=== PATIENT | male | born 1990 | race African-American/Black ===

== ENCOUNTER 2019-05-08 04:56 | Emergency (ER) | payer OTHER ==
[2019-05-08 05:36] VITALS: BP 112/60; PULSE 77; TEMP 98.1; BMI 55.3
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
[2019-05-08] MEDS ORDERED: IBUPROFEN 600 MG TABLET (FP) PO ONE ×2 (06:33→06:36)
[2019-05-08] MEDS ORDERED: METHOCARBAMOL 500 MG TABLET PO ONE (06:33)
[2019-05-08] MEDS ORDERED: METHOCARBAMOL 500 MG TABLET ONE (06:37)
--- NOTE | 2019-05-09 09:39 | EKG ---
Test Reason : Blood Pressure : / mmHG Vent. Rate : 074 BPM Atrial Rate : 074 BPM P-R Int : 188 ms QRS Dur : 096 ms QT Int : 394 ms P-R-T Axes : 074 048 072 degrees QTc Int : 437 ms NORMAL SINUS RHYTHM EARLY REPOLARIZATION NORMAL ECG WHEN COMPARED WITH ECG OF 18-MAY-2015 19:40, NO SIGNIFICANT CHANGE WAS FOUND Confirmed by STEFF EMMANUEL MD ([id number]) on 05/09/2019 9:38:31 AM Referred By: Jarvis GONZALEZ Confirmed By:STEFF EMMANUEL MD
== END 2019-05-08 06:50 | disposition home or self-care (01) ==
LOC: JER 04:56
DX: S20.219A Contusion of unspecified front wall of thorax, initial encounter (principal); V53.6XXA Passenger in pick-up truck or van injured in collision with car, pick-up truck or van in traffic accident, initial encounter; Y92.414 Local residential or business street as the place of occurrence of the external cause; Y93.89 Activity, other specified; Y99.8 Other external cause status
CPT/HCPCS: 93005; 93010; 99282-25

== ENCOUNTER 2019-08-24 22:38 | Emergency (ER) | payer SELFPAY ==
[2019-08-24 22:49] VITALS: BMI 25.0
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
[2019-08-24] MEDS ORDERED: SODIUM CHLORIDE 1,000 ML IV STA (23:20)
[2019-08-24] MEDS ORDERED: IBUPROFEN 600 MG TABLET (FP) PO ONE ×2 (23:20→23:45)
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
[2019-08-25 00:20] LABS: BASO % 0.5 % (0-2.0); EOS % 2.6 % (0-4.5); HEMATOCRIT 40.4 % (35.4-49); HEMOGLOBIN 13.8 GM/dL (11.7-16.9); LYMPH % 40.5 % (8-40); MCHC 34.2 g/dl (32.0-35.9); MEAN CELL VOLUME 87.7 fl (80-96); MEAN PLT VOLUME 8.6 fl (7.5-11.1); MONO % 9.2 % (3.8-10.2); NEUT % 47.2 % (42.8-82.8); PLATELET COUNT 265 K/MM3 (134-434); RBC 4.61 M/mm3 (4.00-5.60); WHITE BLOOD COUNT 7.6 K/mm3 (4.0-10.0)
[2019-08-25 00:23] VITALS: PULSE 73
[2019-08-25 00:32] LABS: INR 1.04 (0.83-1.09); PROTHROMBIN TIME (PATIENT) 12.3 SEC (9.7-13.0)
[2019-08-25 00:41] LABS: ALBUMIN 3.6 g/dl (3.4-5.0); ALK PHOS 99 U/L (45-117); ANION GAP 3 MMOL/L (8-16); BILIRUBIN,TOTAL 0.4 mg/dL (0.2-1); BLOOD UREA NITROGEN 14.6 mg/dL (7-18); CALCIUM 9.2 mg/dL (8.5-10.1); CHLORIDE 103 mmol/L (98-107); CO2 35 mmol/L (21-32); GLUCOSE,RANDOM 94 mg/dL (74-106); POTASSIUM 3.7 mmol/L (3.5-5.1); SGOT/AST 24 U/L (15-37); SGPT/ALT 46 U/L (13-61); SODIUM 141 mmol/L (136-145); TOT PROT 6.6 g/dl (6.4-8.2)
[2019-08-25] MEDS ORDERED: LIDOCAINE 5% TOPICAL PATCH TP ONE (01:56)
[2019-08-25] MEDS ORDERED: LIDOCAINE 5% TOPICAL PATCH ONE (02:04)
[2019-08-25 02:15] VITALS: BP 138/68; TEMP 98.2
--- NOTE | 2019-08-25 12:25 | EKG ---
Test Reason : Blood Pressure : / mmHG Vent. Rate : 069 BPM Atrial Rate : 069 BPM P-R Int : 180 ms QRS Dur : 090 ms QT Int : 404 ms P-R-T Axes : 082 034 066 degrees QTc Int : 432 ms NORMAL SINUS RHYTHM NORMAL ECG WHEN COMPARED WITH ECG OF 08-MAY-2019 06:27, NO SIGNIFICANT CHANGE WAS FOUND Confirmed by LISA MAYER MD ([id number]) on 08/25/2019 12:25:20 PM Referred By: Confirmed By:LISA MAYER MD
--- NOTE | 2019-08-25 12:37 | EKG ---
Test Reason : Blood Pressure : / mmHG Vent. Rate : 073 BPM Atrial Rate : 073 BPM P-R Int : 160 ms QRS Dur : 088 ms QT Int : 396 ms P-R-T Axes : 066 041 075 degrees QTc Int : 436 ms NORMAL SINUS RHYTHM NORMAL ECG WHEN COMPARED WITH ECG OF 24-AUG-2019 23:52, NO SIGNIFICANT CHANGE WAS FOUND Confirmed by LISA MAYER MD ([id number]) on 08/25/2019 12:37:16 PM Referred By: Confirmed By:LISA MAYER MD
[2019-08-25] MEDS ORDERED: LIDOCAINE PATCH REMOVAL MC SCH (22:00)
== END 2019-08-25 02:28 | disposition home or self-care (01) ==
LOC: JER 22:38
CPT/HCPCS: 36415; 71275-TC; 80053; 84484; 85025; 85610; 85730; 93005; 93010; 99283-25; J7030

== ENCOUNTER 2021-07-06 12:27 | Emergency (ER) | payer SELFPAY ==
[2021-07-06 12:37] VITALS: BP 118/78; PULSE 73; TEMP 98.2; BMI 31.7
[2021-07-06] MEDS ORDERED: KETOROLAC TROMETHAMINE 30 MG/1 ML VIAL IM ONE (13:44)
[2021-07-06] MEDS ORDERED: KETOROLAC TROMETHAMINE 30 MG/1 ML VIAL ONE (13:48)
== END 2021-07-06 17:16 | disposition home or self-care (01) ==
LOC: JERFT 12:27
PROC: 3E0233Z Introduction of Anti-inflammatory into Muscle, Percutaneous Approach (ICD-10-PCS; principal; 2021-07-06)
DX: M79.662 Pain in left lower leg (principal); S86.112A Strain of other muscle(s) and tendon(s) of posterior muscle group at lower leg level, left leg, initial encounter; W20.8XXA Other cause of strike by thrown, projected or falling object, initial encounter; Y92.9 Unspecified place or not applicable
CPT/HCPCS: 73610-TC-LT-FY; 73630-TC-LT; 93971-TC; 99284-25

== ENCOUNTER 2021-07-17 20:18 | Emergency (ER) | payer SELFPAY ==
[2021-07-17 20:27] VITALS: BP 130/75; PULSE 84; TEMP 98.2; BMI 27.4
[2021-07-17] MEDS ORDERED: KETOROLAC TROMETHAMINE 30 MG/1 ML VIAL IVPUSH ONE (21:20)
[2021-07-17] MEDS ORDERED: KETOROLAC TROMETHAMINE 30 MG/1 ML VIAL IM ONE (21:22)
[2021-07-17] MEDS ORDERED: KETOROLAC TROMETHAMINE 30 MG/1 ML VIAL ONE (22:03)
== END 2021-07-17 22:59 | disposition home or self-care (01) ==
LOC: JERFT 20:18
PROC: 3E0233Z Introduction of Anti-inflammatory into Muscle, Percutaneous Approach (ICD-10-PCS; principal; 2021-07-17)
PROC: 3E0333Z Introduction of Anti-inflammatory into Peripheral Vein, Percutaneous Approach (ICD-10-PCS; 2021-07-17)
DX: R07.82 Intercostal pain (principal); V89.2XXA Person injured in unspecified motor-vehicle accident, traffic, initial encounter; Y92.9 Unspecified place or not applicable
CPT/HCPCS: 71046-TC-FY; 71101-TC-RT-FY; 73030-TC-RT-FY; 99284-25

== ENCOUNTER 2022-01-24 00:16 | Emergency (ER) | payer OTHER ==
[2022-01-24 01:35] VITALS: BP 116/82; PULSE 79; TEMP 98.3; BMI 28.3
[2022-01-24] MEDS ORDERED: RIVAROXABAN 20 MG TABLET PO ONE (02:24)
== END 2022-01-24 02:47 | disposition home or self-care (01) ==
LOC: JER 00:16
DX: I82.409 Acute embolism and thrombosis of unspecified deep veins of unspecified lower extremity (principal)
CPT/HCPCS: 99283-25